=== PATIENT | female | born 1955 | race Caucasian/White ===

== ENCOUNTER → 2016-07-27 | Outpatient (CLI) | payer OTHER ==
[~2016-07-27] MED LIST: BYSTOLIC 5 MG5 M1 PO; CALCIUM + VITA1 EACH; CIPROFLOXACIN500 M1 PO; CYCLOBENZAPRINE5 MG PO; CYMBALTA60 MG PO; EXFORGE 10-1601 EACH; FLAGYL 250 MG250 MG PO; GLUCOSAMINE HC500 MG; INVANZ 1GM/NS 101 GM IV; LIPITOR80 MG PO; LITHIUM CARBON300 M7 PO; MULTIVITAMINS1 EAC7; NORCO 5-325 TA1 EACH PO; PHENERGAN25 MG RE; PRESTIQ; PRILOSEC20 MG PO; PROZAC20 MG PO; WELLBUTRIN XL300 MG; XANAX 0.5 MG0.5 MG PO; ZETIA10 MG PO
== END ==
LOC: RAD 12:46
DX: Z12.31 Encounter for screening mammogram for malignant neoplasm of breast (principal)

== ENCOUNTER 2017-04-15 19:33 | Emergency (ER) | payer OTHER ==
[~2017-04-15] VITALS: Ht 157.5 cm; Wt 63.5 kg
[2017-04-15 21:30] VITALS: BP 124/82
== END 2017-04-15 23:37 | disposition home or self-care (01) ==
LOC: ER 19:33
DX: S12.9XXA Fracture of neck, unspecified, initial encounter (principal); S01.91XA Laceration without foreign body of unspecified part of head, initial encounter; F10.920 Alcohol use, unspecified with intoxication, uncomplicated; K57.92 Diverticulitis of intestine, part unspecified, without perforation or abscess without bleeding; Z98.890 Other specified postprocedural states; W10.9XXA Fall (on) (from) unspecified stairs and steps, initial encounter; Y93.89 Activity, other specified; Y92.89 Other specified places as the place of occurrence of the external cause; Y99.8 Other external cause status; Z88.2 Allergy status to sulfonamides

== ENCOUNTER → 2017-04-23 | Outpatient (CLI) | payer OTHER | LOC: RAD 12:16 | DX: R07.9 Chest pain, unspecified (principal); M51.36 Other intervertebral disc degeneration, lumbar region; R10.2 Pelvic and perineal pain; Z91.81 History of falling ==

== ENCOUNTER → 2017-05-12 | Outpatient (CLI) | payer OTHER | LOC: RAD 11:33 | DX: R07.89 Other chest pain (principal); R06.02 Shortness of breath ==

== ENCOUNTER → 2017-09-30 | Outpatient (CLI) | payer OTHER | LOC: RAD 11:26 | DX: J18.9 Pneumonia, unspecified organism (principal) ==

== ENCOUNTER → 2018-07-27 | Outpatient (CLI) | payer OTHER | LOC: RAD 02:06 | DX: Z12.31 Encounter for screening mammogram for malignant neoplasm of breast (principal) ==

== ENCOUNTER → 2019-05-10 | Outpatient (CLI) | payer OTHER | LOC: ULTRA 05-05 13:52 | DX: M85.89 Other specified disorders of bone density and structure, multiple sites (principal); M81.0 Age-related osteoporosis without current pathological fracture; E28.39 Other primary ovarian failure; Z78.0 Asymptomatic menopausal state ==

== ENCOUNTER → 2019-09-05 | Outpatient (CLI) | payer OTHER | LOC: BC 08:13 | DX: Z12.31 Encounter for screening mammogram for malignant neoplasm of breast (principal) ==

== ENCOUNTER → 2019-09-28 | Outpatient (CLI) | payer OTHER ==
[~2019-09-28] MED LIST changes: +ADDERALL XR 2525 MG PO; +CHILDREN'S ASPI81 M1 PO; +DIOVAN320 MG PO; +EFFEXOR PO; +EFFEXOR XR150 MG PO; +EFFEXOR XR75 MG PO; +FISH OIL 1,0001 EAC9 PO; +NEURONTIN300 MG PO; +NORVASC 2.5 MG2.5 M1 PO; +VITAMIN D310 MC1 PO; +XANAX 0.5 MG0.5 M1 PO
== END ==
LOC: MRI 13:36
PROVIDERS: ATTEND Family Medicine
DX: M47.812 Spondylosis without myelopathy or radiculopathy, cervical region (principal); M48.02 Spinal stenosis, cervical region; M50.221 Other cervical disc displacement at C4-C5 level; M25.78 Osteophyte, vertebrae; M65.88 Other synovitis and tenosynovitis, other site

== ENCOUNTER → 2019-10-06 | Outpatient (CLI) | payer OTHER ==
[~2019-10-06] VITALS: Ht 154.9 cm; Wt 63.1 kg
[2019-10-06 13:40] VITALS: BP 135/72
--- NOTE | 2019-10-06 13:48 | NUR ---
Pain Clinic Assessment: 1. History of Osteoarthritis: NECK LEFT WRIST BACK History of Rheumatoid Arthritis: Not Applicable 2. Height: 5 ft. 1 in. 154.9 cm. Weight: 139.2 lb. oz. 63.141 kg. Patient's BMI: 26.3 3. Vital Signs: BP: 135/72 Pulse: 97 Resp: 18 Temp: 02 Sat: 100 ECG Mon: 4. Pain Intensity: 2 5. Fall Risk: Dizziness: Y Needs help standing or walking: N Fallen in the last 3 months: N Fall risk comments: 6. Patient on Blood Thinner: None 7. History of Hypertension: Y 8. Opioid Therapy greater than 6 weeks: N Opiate Contract Signed: 9. Risk Assessment Tool Provided: LOW RISK /3 10. Functional Assessment Tool: 11. Recreational Drug Use: Never Drug Type: Tobacco Use: Current Every Day Smoker Tobacco Type: Cigarettes Amount or Packs/day: 1-2 CIG DAY How Many Years: 40 Alcohol Use: Yes Frequency: Daily Quant: 3
--- NOTE | 2019-10-18 16:01 | HPC ---
[facility] [address] [address] PAIN MANAGEMENT CONSULTATION Name: CANDE THRASHER Room #: REG SIMRAN Jennings.#: [id number] Admission: 10/06/19 Attend Phys: Patrick Michele MD Discharge: Date of : 51 Report #: [id number] THIS REPORT FOR: cc: Fabian Marrero MD, Neal A. MD Brown,Patrick Prieto MD ~ CC: Patrick Marrero DATE OF SERVICE: 10/06/2019 CHIEF COMPLAINT: Pain, neck and shoulder pain. HISTORY: The patient is a 64-year-old female who has been referred to the pain clinic for evaluation of neck and arm pain. The patient states that her pain is quite problematic. It is as bad as a "labor pain." She has pain that is radiating down into her neck and shoulder. She has noticed an increase in pain at this point. Did have some discomfort about 6 years ago. She notes that the pain is worse when she is extending her neck. It is problematic when she is looking up. Notes that pain medications are somewhat helpful. She describes it as continuous, crushing and aching. Rates it as a 2 today. It can rise to the level of 9. On average, it is about 5/10 and discomfort. Right side is most problematic. She has not had chiropractic treatment. She had physical therapy about 3 years ago. She has tried nonsteroidal anti-inflammatory medications. Pain is particularly problematic in the morning. She has used heat as well as cold to help alleviate the pain. ALLERGIES: SULFA. CURRENT MEDICATIONS: 1. Alprazolam 0.5 mg b.i.d. 2. Effexor 225 mg. 3. Diovan 320 mg. 4. Norvasc 2.5 mg. 5. Vitamin D3. 6. Fish oil 1000 mg. 7. Venlafaxine 75 mg XR, 8. Adderall XR 25 mg. 9. Aspirin 81 mg. 10. Gabapentin 300 mg 2 tablets a.m., one tablet at noon, 1 tablet at bedtime. 11. Multivitamins. 12. Lipitor 80 mg. PAST MEDICAL HISTORY: 1. Anxiety. 2. Arthritis. [facility] [address] [place] [address] PAIN MANAGEMENT CONSULTATION Name: CANDE THRASHER Room #: [facility].#: [id number] Admission: 10/06/19 Attend Phys: Patrick Michele MD Discharge: Date of : 51 Report #: [id number] 3. Asthma. 4. Bronchitis. 5. Depression. 6. Diverticulitis. 7. Hyperlipidemia. 8. Hypertension. 9. Seasonal allergies. 10. Sleep apnea/obstruction on CPAP. PAST SURGICAL HISTORY: 1. Appendectomy in 1973. 2. section, 1978. 3. Right hand surgery after a dog bite in 2015. 4. Hysterectomy in 1993. SOCIAL HISTORY: Retired. States she is working now. REVIEW OF SYSTEMS: Wears glasses, mouth sores, CPAP machine, rash, itching, nervousness, depression. LABORATORY DATA: 1. MRI of the cervical spine dated 09/28/2019. 2. C2-C3 no disk bulge or protrusion. There is no central canal or significant neural foraminal stenosis. There is moderate right-sided hypertrophic degenerative facet disease. 3. C3-C4 right-sided hypertrophic facet arthrosis with fluid signal in the right facet. There is periarticular soft tissue and bone marrow edema consistent with degenerative synovitis. 4. Correlation for right-sided radicular symptoms at C4 radiculopathy. There is no significant disk bulge or protrusion. There is no central canal stenosis. Mild to moderate right-sided neural foraminal narrowing is present, 5. C4-C5 mild posterior disk bulging with effacement of the ventral thecal sac. AP diameter of the central canal is within normal limits. Mild degenerative facet disease are present with symmetry bilateral. 6. C5-C6 disk space and desiccation of the posterior disk bulging causing effacement of the ventral thecal sac. The AP diameter of the central canal is mildly narrowed at 10 mm. There is symmetric bilateral neural foraminal stenosis with mild effacement of both exiting C6 nerve roots. There is mild degenerative facet disease. 7. C6-C7 right paracentral disk osteophyte complex causing effacement of the ventral thecal sac. The AP diameter of the central canal is narrowed to 9.5 mm. There is right lateral recess narrowing. There is mild right-sided neural foraminal stenosis. PAIN CLINIC ASSESSMENT AND PQRS: 1. The patient has some osteoarthritic changes in her neck, left wrist and [address] [address] PAIN MANAGEMENT CONSULTATION Name: CANDE THRASHER KEVON Room #: REG [facility].#: [id number] Admission: 10/06/19 Attend Phys: Patrick Michele MD Discharge: Date of : 51 Report #: [id number] back. She is not being treated for rheumatoid arthritis. 2. Height 5 feet 1 inch, weight 138 pounds, BMI is 26. 3. Vital Signs: Blood pressure 165/69, pulse 95, respiratory rate 18, room air saturation 96%. 4. Pain intensity 06/26. 5. Fall history: The patient has not fallen in the last 3 months. 6. Blood thinner. The patient is not on a blood thinning medication. 7. Hypertension. The patient is being treated for hypertension. 8. Opioids greater than 6 weeks. The patient receives medication from her primary. 9. Risk assessment tool, low for opioid use. 10. Functional assessment tool . 11. Recreational drug use. The patient denies. 12. Tobacco: The patient smokes 2 cigarettes per day, has smoked for last 40 years. 13. Alcohol: The patient does drink 3 beverages daily. PHYSICAL EXAMINATION: GENERAL: The patient is a well-developed, well-nourished white female. Appears her stated age. She is alert and oriented x 3. Her affect is appropriate. Speech is fluent. HEENT: Normocephalic, atraumatic. Extraocular eye muscles intact. Sclerae nonicteric. Mucous membranes are moist. The patient is wearing glasses. NECK: Without adenopathy or JVD. HEART: Rate is regular. CHEST: Clear to auscultation. ABDOMEN: Nontender. EXTREMITIES: Upper extremity muscle strength judged to be 5/5 for the major muscle groups in the upper extremity. The patient has pain and discomfort on the right side. Notes pain and discomfort in the shoulder area with pain that radiates down into the deltoid area and into her arm. Spurling maneuver is positive on the right. MUSCULOSKELETAL: Without significant scoliosis, kyphosis or lordosis. Lower extremity muscle strength judged to be 5/5 for the major muscle groups in the lower extremity. IMPRESSION: 1. Cervical radiculopathy with pain radiating down into the right shoulder and into the arm with increased pain and discomfort. 2. Anxiety. 3. Arthritis. 4. Asthma. 5. Bronchitis. 6. Depression. 7. Diverticulitis. 8. Hyperlipidemia. [facility] [address] [place] [address] PAIN MANAGEMENT CONSULTATION Name: ANNA MARIECANDEJULIO LUND [facility] [id number] Admission: 10/06/19 Attend Phys: Patrick Michele MD Discharge: Date of : 51 Report #: [id number] 9. Hypertension. 10. Seasonal allergies. 11. Sleep apnea/obstruction on CPAP. RECOMMENDATIONS: We discussed treatment options with the patient. Risks and benefits of a cervical epidural steroid injection were discussed. A model was used to indicate the area of probable pathology. We will explain a very basic level of the problems associated with cervical radiculopathy. The patient states that she understands. She will return to the Pain Clinic, at which time she will undergo a cervical epidural steroid injection. Risks and benefits were discussed. The patient will be reminded at the next visit. The possible complications prior to undergoing an injection. We would like to thank you for letting us participate in her care. We hope she continues to improve. <ELECTRONICALLY SIGNED> By: Patrick Michele MD 10/18/19 1601 [id number] Patrick Michele MD /CALVIN
== END ==
LOC: PAIN 06:50
PROVIDERS: ATTEND Anesthesiology Pain Medicine
DX: M54.12 Radiculopathy, cervical region (principal); M25.511 Pain in right shoulder; M19.90 Unspecified osteoarthritis, unspecified site; F41.8 Other specified anxiety disorders; K57.33 Diverticulitis of large intestine without perforation or abscess with bleeding; E78.5 Hyperlipidemia, unspecified; J40 Bronchitis, not specified as acute or chronic; F17.210 Nicotine dependence, cigarettes, uncomplicated; F10.10 Alcohol abuse, uncomplicated; I10 Essential (primary) hypertension; G47.33 Obstructive sleep apnea (adult) (pediatric); Z98.890 Other specified postprocedural states; Z88.2 Allergy status to sulfonamides; Z79.899 Other long term (current) drug therapy

== ENCOUNTER → 2019-10-11 | Outpatient (CLI) | payer OTHER ==
[~2019-10-11] VITALS: Ht 154.9 cm; Wt 62.9 kg
--- NOTE | ~2019-10-11 | HPC ---
[facility] [place] [address] PAIN MANAGEMENT CONSULTATION Name: CANDE THRASHER Room #: REG [facility] Dick.#: [id number] Admission: 10/11/19 Attend Phys: Patrick Michele MD Discharge: Date of : 51 Report #: [id number] THIS REPORT FOR: cc: Fabian Marrero MD,Fabian Michele,Patrick Prieto MD ~ CC: Patrick Marrero DATE OF SERVICE: 10/11/2019 CHIEF COMPLAINT: Neck pain and shoulder pain. HISTORY: The patient is a 64-year-old female who has been seen in the pain clinic because of neck and arm pain. The patient has been problematic. She states she has a very severe pain. It is better if she was in labor. Notes that the pain radiates down into her neck and her shoulder. Has noticed increasing pain at this juncture. She did have some discomfort about 6 years ago. Pain continues to worsen, particularly when she extends her neck. She has returned today with the hopes of undergoing a cervical epidural steroid injection to help quell the pain. ALLERGIES: SULFA. CURRENT MEDICATIONS: Alprazolam 0.5 mg b.i.d., Effexor 225 mg, Diovan 320 mg, Norvasc 2.5 mg, vitamin D3, fish oil 1000 mg, venlafaxine 75 mg XR, Adderall XR 25 mg, aspirin 81 mg, gabapentin 300 mg 2 tablets a.m., 1 tablet at noon, and 1 tablet at bedtime, multivitamins, Lipitor 80 mg. PAIN CLINIC ASSESSMENT AND PQRS: 1. The patient has some osteoarthritic changes in her neck. Complains of some left wrist and back pain as well. She is not being treated for rheumatoid arthritis. 2. Height 5 feet 1 inch, weight 138 pounds, BMI is 26. 3. Vital Signs: Blood pressure 165/69, pulse 95, respiratory rate 18, room air saturation 96%. 4. Pain intensity 06/26. 5. Fall risk. The patient has not fallen in the last 3 months. 6. Blood thinner. The patient is not on a blood thinning medication. 7. Hypertension. The patient is being treated for hypertension. 8. Opioids greater than 6 weeks. The patient receives medication from her primary. 9. Risk assessment tool, low for opioid use. 10. Functional assessment tool . 11. Recreational drug use. The patient denies. 12. Tobacco: The patient smokes 1-2 cigarettes per day, has smoked for [address] [place] [address] PAIN MANAGEMENT CONSULTATION Name: CANDE THRASHER Room #: REG [facility]#: [id number] Admission: 10/11/19 Attend Phys: Patrick Michele MD Discharge: Date of : 51 Report #: [id number] years. 13. Alcohol: The patient drinks about 3 alcoholic beverages daily. PHYSICAL EXAMINATION: GENERAL: The patient is a well-developed, well-nourished white female. Appears her stated age. She is alert and oriented x 3. Her affect is appropriate. Speech is fluent. HEENT: Normocephalic, atraumatic. Extraocular eye muscles intact. Sclerae nonicteric. Mucous membranes are moist. The patient is wearing glasses. NECK: Without adenopathy or JVD. HEART: Regular rate. CHEST: Clear to auscultation. ABDOMEN: Nontender. EXTREMITIES: Upper extremity judged to be 5-/5 for the major muscle groups in the upper extremity. The patient has some pain and discomfort in her right shoulder and arm. Increases pain with Spurling maneuver positive on the right. MUSCULOSKELETAL: Without significant scoliosis, kyphosis or lordosis. Muscle strength 5/5 for the major muscle groups in the lower extremity. IMPRESSION: 1. Cervical radiculopathy with pain radiating down the right shoulder and into the right arm with increasing pain and discomfort. 2. Anxiety. 3. Arthritis. 4. Asthma. 5. Bronchitis. 6. Depression. 7. Diverticulitis. 8. Hyperlipidemia. 9. Hypertension. 10. Seasonal allergies. 11. Sleep apnea/obstruction using CPAP. RECOMMENDATIONS: We discussed treatment options with the patient. Risks and benefits of a cervical epidural steroid injection were discussed. They could include but are not limited to infection, worsening the pain, no improvement in pain, nerve damage and the patient elects to proceed. PROCEDURE NOTE: The patient was taken to the procedure area. She was then assisted in getting on the examination table. Her back was sterilely prepped with a Betadine solution in the cervical area. A 0.25% bupivacaine was infiltrated using a 25-gauge needle. Fluoroscopy using anterior, posterior as well as lateral viewing were used to note placement. A 17-gauge Tuohy with loss of resistance technique was used to gain access to the epidural space. There was no CSF, heme or paresthesia. A total of 120 mg triamcinolone was injected. The patient tolerated the procedure well. There were no complications. About [address] [address] PAIN MANAGEMENT CONSULTATION Name: CANDE THRASHER Room #: REG [facility] Cheng#: [id number] Admission: 10/11/19 Attend Phys: Patrick Michele MD Discharge: Date of : 51 Report #: [id number] 20 seconds fluoroscopy time was used. The patient remained in the pain clinic for an appropriate amount of time. She will follow up in the future as needed. We would like to thank you for letting us participate in her care. We hope she continues to improve. By: [id number] Patrick Michele MD /CALVIN
[2019-10-11 13:01] VITALS: BP 165/69
--- NOTE | 2019-10-11 13:17 | NUR ---
Pain Clinic Assessment: 1. History of Osteoarthritis: NECK LEFT WRIST BACK History of Rheumatoid Arthritis: Not Applicable 2. Height: 5 ft. 1 in. 154.9 cm. Weight: 138.6 lb. oz. 62.868 kg. Patient's BMI: 26.2 3. Vital Signs: BP: 165/69 Pulse: 95 Resp: 18 Temp: 02 Sat: 96 ECG Mon: 4. Pain Intensity: 3 5. Fall Risk: Dizziness: Y Needs help standing or walking: N Fallen in the last 3 months: N Fall risk comments: 6. Patient on Blood Thinner: None 7. History of Hypertension: Y 8. Opioid Therapy greater than 6 weeks: N Opiate Contract Signed: 9. Risk Assessment Tool Provided: LOW RISK /3 10. Functional Assessment Tool: 11. Recreational Drug Use: Never Drug Type: Tobacco Use: Current Every Day Smoker Tobacco Type: Cigarettes Amount or Packs/day: 1-2 CIGS How Many Years: 40 Alcohol Use: Yes Frequency: Daily Quant: 3
== END | disposition home or self-care (01) ==
LOC: PAIN 06:47
PROVIDERS: ATTEND Anesthesiology Pain Medicine
DX: M54.12 Radiculopathy, cervical region (principal); G89.29 Other chronic pain; F17.210 Nicotine dependence, cigarettes, uncomplicated; Z98.890 Other specified postprocedural states; Z79.899 Other long term (current) drug therapy; Z88.2 Allergy status to sulfonamides

== ENCOUNTER → 2019-12-06 | Outpatient (CLI) | payer OTHER ==
[~2019-12-06] VITALS: Ht 154.9 cm; Wt 63.1 kg
[~2019-12-06] MED LIST changes: +GINKGO BILOBA30 MG PO; +MAGNESIUM 300300 MG PO
--- NOTE | ~2019-12-06 | HPC ---
[facility] [place] [address] PAIN MANAGEMENT CONSULTATION Name: CANDE THRASHER Room #: REG [facility].#: [id number] Admission: 12/06/19 Attend Phys: Patrick Michele MD Discharge: Date of : 51 Report #: [id number] THIS REPORT FOR: cc: Fabian Marrero MD,Fabian Michele,Patrick Prieto MD ~ CC: Patrick Marrero DATE OF SERVICE: 12/06/2019 CHIEF COMPLAINT: Pain in the left side and down in the arm. HISTORY: The patient is a 64-year-old female who has been seen in the pain clinic. She suffers from cervical radiculopathy. She is noticing pain that continues to be somewhat problematic. She is experiencing pain that radiates down the left and right side. Pain is worse in the morning when she gets out of bed. She notes that if she uses her hand this can increase the pain and discomfort. Certain movements of her head can increase the discomfort as well. She does try to exercise and "work out." At this point, her pain continues to be problematic and she rates it as a 2 now, but more problematic in the morning. She would like to proceed with another cervical epidural steroid injection with hopes that this would help increase her level of comfort. ALLERGIES: SULFA. CURRENT MEDICATIONS: Alprazolam 0.5 mg b.i.d., Effexor 225 mg, Diovan 320 mg, Norvasc 2.5 mg, vitamin D3, fish oil 1000 mg, venlafaxine 75 mg XR, Adderall XR 25 mg, aspirin 81 mg, gabapentin 300 mg 2 tablets a.m., one noon, 1 at bedtime, multivitamins, Lipitor 80 mg. PAIN CLINIC ASSESSMENT/PQRS: 1. The patient has some osteoarthritic changes in her neck. Complains of pain that radiates down to her left wrist as well as some pain in the mid portion of her back. She is not being treated for rheumatoid arthritis. 2. Height 5 feet 1 inch, weight 139 pounds, BMI 26. 3. Vital Signs: Blood pressure 137/64, heart rate 108, respiratory rate 18, room air saturation 98%. 4. The patient has pain 05/29. 5. Fall history: The patient has not fallen in the last 3 months. 6. Blood thinner: the patient is not on a blood thinning medication. 7. Hypertension: The patient is being treated for hypertension. 8. Opioids greater than 6 weeks: The patient receives medication from the primary. 9. Risk assessment tool: Low for opioid use. 10. Functional assessment tool: . [address] [address] PAIN MANAGEMENT CONSULTATION Name: THRASHERCANDE [facility] [id number] Admission: 12/06/19 Attend Phys: Patrick Michele MD Discharge: Date of : 51 Report #: [id number] 11. Recreational drug use: The patient denies. 12. Tobacco: The patient smokes 1-2 cigarettes per day, has smoked for last 40 years. 13. Alcohol: The patient drinks about 3 alcoholic beverages daily. PHYSICAL EXAMINATION: GENERAL: The patient is a well-developed, well-nourished white female. Appears her stated age. She is alert and oriented x 3. Her affect is appropriate. Speech is fluent. HEENT: Normocephalic, atraumatic. Extraocular eye muscles intact. Sclerae nonicteric. Mucous membranes are moist. The patient is wearing glasses. She has a face cover on. NECK: Without adenopathy or JVD. HEART: Regular rate. LUNGS: Clear to auscultation. ABDOMEN: Nontender. EXTREMITIES: Upper extremity muscle strength judged to be 5-/5 for the major muscle groups in the upper extremity. The patient complains of some pain and discomfort on the right shoulder and arm. Complains of some pain and discomfort in the left arm with radiation down to her hands. The patient has a positive Spurling maneuver. The patient without significant scoliosis, kyphosis or lordosis. Lower extremity muscle strength judged to be 5/5 for the major muscle groups in the lower extremity. IMPRESSION: 1. Cervical radiculopathy with pain radiating down to the right shoulder and into the left side with pain into the right arm. 2. Anxiety. 3. Arthritis. 4. Asthma. 5. Bronchitis. 6. Depression. 7. Diverticulitis. 8. Hyperlipidemia. 9. Hypertension. 10. Seasonal allergies. 11. Sleep apnea/patient uses a CPAP machine. RECOMMENDATIONS: We discussed treatment options with the patient. Risks and benefits of a cervical epidural steroid injection were again discussed. They include but they are not limited to infection, worsening of pain, no improvement in pain, nerve damage and the patient elects to proceed. The patient is aware that COVID-19 is pandemic. Should she become infected during the procedure she may have a more difficult problem with the virus given the steroids decrease one's immune response. [facility] [address] [place] [address] PAIN MANAGEMENT CONSULTATION Name: CANDE THRASHER Room #: HOANG Cheng#: [id number] Admission: 12/06/19 Attend Phys: Patrick Michele MD Discharge: Date of : 51 Report #: [id number] PROCEDURE NOTE: The patient was taken to the procedure area. She was then assisted in getting on the examination table. Her back was sterilely prepped with a Betadine solution and allowed to dry. A 0.25% bupivacaine was infiltrated at the C7-T1 interspace. A fluoroscopy using anterior, posterior as well as lateral viewing were implemented. A 17-gauge Tuohy was then advanced at the area of C7-T1. A total of 120 mg triamcinolone and 2 mL of 0.25% bupivacaine was injected. The patient tolerated the procedure well. There were no complications. She remained in the Pain Clinic for an appropriate amount of time. A total of 29 seconds fluoroscopy time was used. She will call us if she has any concerns. By: [id number] Patrick Michele MD /CALVIN
[2019-12-06 12:36] VITALS: BP 132/64
--- NOTE | 2019-12-06 12:41 | NUR ---
Pain Clinic Assessment: 1. History of Osteoarthritis: NECK LEFT WRIST BACK History of Rheumatoid Arthritis: Not Applicable 2. Height: 5 ft. 1 in. 154.9 cm. Weight: 139.2 lb. oz. 63.141 kg. Patient's BMI: 26.3 3. Vital Signs: BP: 132/64 Pulse: 108 Resp: 18 Temp: 02 Sat: 98 ECG Mon: 4. Pain Intensity: 2 5. Fall Risk: Dizziness: Needs help standing or walking: Fallen in the last 3 months: Fall risk comments: 6. Patient on Blood Thinner: None 7. History of Hypertension: Y 8. Opioid Therapy greater than 6 weeks: N Opiate Contract Signed: 9. Risk Assessment Tool Provided: LOW RISK / 10. Functional Assessment Tool: 11. Recreational Drug Use: Never Drug Type: Tobacco Use: Current Every Day Smoker Tobacco Type: Amount or Packs/day: How Many Years: Alcohol Use: Yes Frequency: Quant:
== END | disposition home or self-care (01) ==
LOC: PAIN 12-01 06:53
PROVIDERS: ATTEND Anesthesiology Pain Medicine
DX: M54.12 Radiculopathy, cervical region (principal); G89.29 Other chronic pain; I10 Essential (primary) hypertension; M19.90 Unspecified osteoarthritis, unspecified site; F41.9 Anxiety disorder, unspecified; F32.9 Major depressive disorder, single episode, unspecified; E78.5 Hyperlipidemia, unspecified; G47.30 Sleep apnea, unspecified; J45.909 Unspecified asthma, uncomplicated; Z98.890 Other specified postprocedural states; Z79.899 Other long term (current) drug therapy; Z88.2 Allergy status to sulfonamides

== ENCOUNTER → 2020-03-13 | Outpatient (CLI) | payer OTHER ==
[~2020-03-13] VITALS: Ht 152.4 cm; Wt 65.3 kg
[~2020-03-13] MED LIST changes: +TRAMADOL 50 MG50 MG PO; +TRAMADOL100 MG PO
[2020-03-13 12:38] VITALS: BP 140/76
--- NOTE | 2020-03-13 12:45 | NUR ---
Pain Clinic Assessment: 1. History of Osteoarthritis: NECK LEFT WRIST BACK History of Rheumatoid Arthritis: Not Applicable 2. Height: 5 ft. 0 in. 152.4 cm. Weight: 144.0 lb. oz. 65.318 kg. Patient's BMI: 28.1 3. Vital Signs: BP: 140/76 Pulse: 93 Resp: 16 Temp: 02 Sat: 98 ECG Mon: 4. Pain Intensity: 5 5. Fall Risk: Dizziness: N Needs help standing or walking: N Fallen in the last 3 months: N Fall risk comments: 6. Patient on Blood Thinner: None 7. History of Hypertension: Y 8. Opioid Therapy greater than 6 weeks: N Opiate Contract Signed: 9. Risk Assessment Tool Provided: LOW RISK 2 10. Functional Assessment Tool: 11. Recreational Drug Use: Never Drug Type: Tobacco Use: Current Every Day Smoker Tobacco Type: Cigarettes Amount or Packs/day: 2 CIGS How Many Years: 40 Alcohol Use: Yes Frequency: Daily Quant: 3-4 VODKA SODA WITH LEMON
== END ==
LOC: PAIN 06:46
PROVIDERS: ATTEND Anesthesiology Pain Medicine
DX: M54.12 Radiculopathy, cervical region (principal); M19.90 Unspecified osteoarthritis, unspecified site; J45.909 Unspecified asthma, uncomplicated; F32.9 Major depressive disorder, single episode, unspecified; K57.92 Diverticulitis of intestine, part unspecified, without perforation or abscess without bleeding; F41.9 Anxiety disorder, unspecified; I10 Essential (primary) hypertension; E78.5 Hyperlipidemia, unspecified; G47.30 Sleep apnea, unspecified; F17.210 Nicotine dependence, cigarettes, uncomplicated

== ENCOUNTER → 2020-03-27 | Outpatient (CLI) | payer OTHER ==
[~2020-03-27] VITALS: Ht 152.4 cm; Wt 65.9 kg
[2020-03-27 14:00] VITALS: BP 135/61
== END ==
LOC: PAIN 06:55
PROVIDERS: ATTEND Anesthesiology Pain Medicine
DX: M54.2 Cervicalgia (principal); M25.511 Pain in right shoulder; Z88.8 Allergy status to other drugs, medicaments and biological substances

== ENCOUNTER → 2020-05-24 | Outpatient (CLI) | payer OTHER ==
[~2020-05-24] VITALS: Ht 152.4 cm; Wt 66.4 kg
[~2020-05-24] MED LIST changes: +ADDERALL 20 MG20 MG PO; +INCRUSE ELLI62.5 MCG INH
[2020-05-24 14:31] VITALS: BP 136/72
--- NOTE | 2020-05-24 14:44 | NUR ---
Pain Clinic Assessment: 1. History of Osteoarthritis: NECK LEFT WRIST BACK History of Rheumatoid Arthritis: Not Applicable 2. Height: 5 ft. 0 in. 152.4 cm. Weight: 146.4 lb. oz. 66.407 kg. Patient's BMI: 28.6 3. Vital Signs: BP: 136/72 Pulse: 95 Resp: 14 Temp: 02 Sat: 97 ECG Mon: 4. Pain Intensity: 6 5. Fall Risk: Dizziness: N Needs help standing or walking: N Fallen in the last 3 months: N Fall risk comments: 6. Patient on Blood Thinner: None 7. History of Hypertension: Y 8. Opioid Therapy greater than 6 weeks: N Opiate Contract Signed: 9. Risk Assessment Tool Provided: LOW RISK 2 10. Functional Assessment Tool: 11. Recreational Drug Use: Never Drug Type: Tobacco Use: Current Every Day Smoker Tobacco Type: Cigarettes Amount or Packs/day: 1 CIGG How Many Years: 45 Alcohol Use: Yes Frequency: Daily Quant: 3
== END | disposition home or self-care (01) ==
LOC: PAIN 07:04
PROVIDERS: ATTEND Anesthesiology Pain Medicine
DX: M54.12 Radiculopathy, cervical region (principal); G89.29 Other chronic pain; I10 Essential (primary) hypertension; E78.5 Hyperlipidemia, unspecified; M19.90 Unspecified osteoarthritis, unspecified site; J45.909 Unspecified asthma, uncomplicated; F32.9 Major depressive disorder, single episode, unspecified; G47.30 Sleep apnea, unspecified; F41.9 Anxiety disorder, unspecified; Z98.890 Other specified postprocedural states; Z79.899 Other long term (current) drug therapy; Z88.2 Allergy status to sulfonamides

== ENCOUNTER → 2020-07-03 | Outpatient (CLI) | payer OTHER ==
[~2020-07-03] VITALS: Ht 152.4 cm; Wt 64.5 kg
[~2020-07-03] MED LIST changes: +K-DUR10 MEQ PO
[2020-07-03 09:18] VITALS: BP 130/75
--- NOTE | 2020-07-03 09:24 | NUR ---
Pain Clinic Assessment: 1. History of Osteoarthritis: NECK LEFT WRIST BACK History of Rheumatoid Arthritis: Not Applicable 2. Height: 5 ft. 0 in. 152.4 cm. Weight: 142.2 lb. oz. 64.501 kg. Patient's BMI: 27.8 3. Vital Signs: BP: 130/75 Pulse: 99 Resp: 16 Temp: 02 Sat: 95 ECG Mon: 4. Pain Intensity: 8 5. Fall Risk: Dizziness: Y Needs help standing or walking: N Fallen in the last 3 months: N Fall risk comments: 6. Patient on Blood Thinner: None 7. History of Hypertension: Y 8. Opioid Therapy greater than 6 weeks: N Opiate Contract Signed: 9. Risk Assessment Tool Provided: LOW RISK 2 10. Functional Assessment Tool: 11. Recreational Drug Use: Never Drug Type: Tobacco Use: Current Every Day Smoker Tobacco Type: Cigarettes Amount or Packs/day: 1-2 CIGS How Many Years: Alcohol Use: Yes Frequency: Quant:
--- NOTE | 2020-07-03 14:50 | HPC ---
[facility] [address] [address] PAIN MANAGEMENT CONSULTATION Name: CANDE THRASHER Room #: REG [facility] MLeann.#: [id number] Admission: 07/03/20 Attend Phys: Augusta Meehan Discharge: Date of : 51 Report #: [id number] THIS REPORT FOR: cc: Fabian Marrero MD, Neal A. MD Hocker,Augusta Barron DATE OF SERVICE: 07/03/2020 CHIEF COMPLAINT: Cervical radiculopathy and left wrist pain. HISTORY OF PRESENT ILLNESS: This is a 65-year-old female who is in a pain clinic today for renewal of medications. Today, she is presenting very anxious, complaining of chest discomfort. She denies any chest pain. She states that she has indigestion. She has bouts of this several times a year and has brought to the Emergency Room and has never been cardiac related per her report. She is asking for hard candy and is so anxious. She is unable to concentrate on our appointment, so she left to go to the pharmacy and obtained Tums. When she returned in our clinic, she is much more calm and states that her chest discomfort disappeared. The patient is here for medication refills for her cervical radiculopathy. Per her report, the last injection that Dr. Michele performed in May was helpful 50-75% and is still relieving significant portion of her pain. Today, her pain is elevated at 8/10, but that was mostly related to her chest discomfort since that has resolved. She now rates her pain 4. It is mostly located in her neck and right shoulder and most bothersome in her left wrist today with certain movements. She denies any constipation, problems with her tramadol and believes it is very beneficial for her. ALLERGIES: SULFA. CURRENT LIST OF MEDICATIONS: Potassium, tramadol 100 mg b.i.d., Incruse Ellipta, Adderall, Ginkgo biloba, magnesium, alprazolam, Effexor, losartan, amlodipine, vitamin D3, fish oil, venlafaxine, aspirin, gabapentin, multivitamin, atorvastatin. PQRS: 1. She has osteoarthritic changes in her neck, wrist and back. Denies any rheumatoid arthritis. 2. Height is 5 feet, weight is 142, BMI is 27. Vital signs 130/75, pulse is 99, respirations 16, oxygen sat is 95. 3. Pain score is 48. 4. Complains of slight dizziness, does not use anything for ambulation and has not fallen in the last 3 months. 5. The patient is not on any blood thinners, but does take medicine for hypertension. Opioid therapy is greater than 6 weeks. We will have her sign an [facility] [address] [place] [address] PAIN MANAGEMENT CONSULTATION Name: CANDE THRASHER KEVON Room #: REG CL Prosper#: [id number] Admission: 07/03/20 Attend Phys: Augusta Meehan Discharge: Date of : 51 Report #: [id number] opioid contract at her next visit. 6. Recreational drug use, she denies. She is a current smoker of 1-2 cigarettes a day. She does drink alcohol. Her risk assessment is low. Functional assessment is 33/70. According to the prescription monitoring system, she is filling appropriately for medications. She does take a benzodiazepine as well as her Adderall and is followed closely by other physicians. She is on time to fill her tramadol today. Her morphine mEq is [address] below the CDC guidelines, she is followed monthly currently in our clinic. PHYSICAL EXAMINATION: GENERAL: This is a well-developed, well-nourished white female who is very anxious today. She is alert and orientated, answering all my questions appropriately, rating her pain score from 4-8. HEENT: Normocephalic, atraumatic. Extraocular eye muscles are intact. Sclerae are nonintrinsic. She is wearing a mask. NECK: Without adenopathy or JVD. She has discomfort in her cervical spine that radiates into her right shoulder following the C7 dermatomal distribution. MUSCULOSKELETAL: The patient is without significant scoliosis, kyphosis or lordosis. Muscle strength in her upper extremity is symmetrical at 5/5. She has tenderness in her left wrist with flexion and extension. No radicular symptoms in her hands present today. IMPRESSION: 1. Cervical radiculopathy. 2. Anxiety. 3. Arthritis. 4. Depression. 5. Hypertension. 6. Complex medical management utilizing scheduled opioid medications. 7. Gastrointestional Reflux PLAN: 1. We discussed treatment options with the patient today. The patient feels the tramadol has been beneficial in helping reduce her pain as well as her third cervical epidural steroid injection afforded her 50-75% relief, she would like to continue on her current regimen. I explained that she will be seen monthly in the clinic until she has been on opioids for [address] Michele's protocol. Then we will be able to follow her every 3 months. Per the CDC's recommendations, she is at 50 MME or below. The patient is agreeable with this plan of care. We will have Dr. Andres Michele send a tramadol prescription for #120 tablets to her pharmacy today. 2. I encouraged the patient to keep Tums with her at all times or some antiacid medications to prevent issues she had when she arrived in our clinic. Time spent in consultation reviewing pertinent imaging and reviewing clinical [facility] [address] [place] [address] PAIN MANAGEMENT CONSULTATION Name: CANDE THRASHER Room #: REG [facility] Dick.#: [id number] Admission: 07/03/20 Attend Phys: Augusta Meehan Discharge: Date of : 51 Report #: [id number] notes and physician reports conducting physical examination and correlating physical findings of medical documentation determine a treatment, 15 minutes. Time spent in preparation for appointment routine prescription monitoring report, reviewing revious records and proposed treatment options, reviewing current medication every 5 minutes. Time spent preparing sending electronic prescriptions with collaborated physician, Dr. Michele documentation of visit and plan of treatment. 5 minutes. Total time spent 25 minutes. <ELECTRONICALLY SIGNED> By: Augusta Meehan 07/03/20 1450 [id number] [id number] Augusta Meehan /nt
== END ==
LOC: PAIN 06:39
PROVIDERS: ATTEND Clinical Nurse Specialist Adult Health
DX: M54.12 Radiculopathy, cervical region (principal); M19.90 Unspecified osteoarthritis, unspecified site; I10 Essential (primary) hypertension; K21.9 Gastro-esophageal reflux disease without esophagitis; F32.9 Major depressive disorder, single episode, unspecified; F41.9 Anxiety disorder, unspecified; Z79.899 Other long term (current) drug therapy; Z79.891 Long term (current) use of opiate analgesic; Z88.2 Allergy status to sulfonamides

== ENCOUNTER → 2020-07-31 | Outpatient (CLI) | payer OTHER ==
[~2020-07-31] VITALS: Ht 152.4 cm; Wt 63.0 kg
[2020-07-31 09:03] VITALS: BP 143/60
--- NOTE | 2020-07-31 09:12 | NUR ---
Pain Clinic Assessment: 1. History of Osteoarthritis: NECK LEFT WRIST BACK History of Rheumatoid Arthritis: Not Applicable 2. Height: 5 ft. 0 in. 152.4 cm. Weight: 139.0 lb. oz. 63.050 kg. Patient's BMI: 27.1 3. Vital Signs: BP: 143/60 Pulse: 91 Resp: 14 Temp: 02 Sat: 97 ECG Mon: 4. Pain Intensity: 0 5. Fall Risk: Dizziness: N Needs help standing or walking: N Fallen in the last 3 months: N Fall risk comments: 6. Patient on Blood Thinner: None 7. History of Hypertension: Y 8. Opioid Therapy greater than 6 weeks: N Opiate Contract Signed: 9. Risk Assessment Tool Provided: LOW RISK 2 10. Functional Assessment Tool: 11. Recreational Drug Use: Never Drug Type: Tobacco Use: Current Every Day Smoker Tobacco Type: Cigarettes Amount or Packs/day: 0.1 How Many Years: 40 Alcohol Use: Yes Frequency: Daily Quant: 3-4 VODKA
--- NOTE | 2020-08-01 09:43 | HPC ---
[facility] [address] [place] [address] PAIN MANAGEMENT CONSULTATION Name: CANDE THRASHER [facility] [id number] Admission: 07/31/20 Attend Phys: Augusta Meehan Discharge: Date of : 51 Report #: [id number] THIS REPORT FOR: cc: Fabian Marrero MD, Neal A. MD Hocker,Augusta Barron DATE OF SERVICE: 07/31/2020 CHIEF COMPLAINT: Cervical radiculopathy. HISTORY OF PRESENT ILLNESS: This is a pleasant 65-year-old female who returns to the pain clinic today for renewal of her tramadol. Today, the patient is reporting no pain. She believes the tramadol is very beneficial in helping control her neck and right shoulder pain. She describes it as a constant aching sensation, especially when she turns her head. She reports going to [employer] 3 times a week and feels that it is also beneficial in keeping her pain reduced. She reports noticing a difference in her discomfort if she forgets to take her tramadol. The patient denies any opioid-induced constipation or any daytime somnolence as a result of her medications. Today, she would like refills of that medication. The patient reports having both of her COVID vaccines. She has not had any side effects after the injections. ALLERGIES: SULFA. CURRENT LIST OF MEDICATIONS: Tramadol 50 mg 4 times a day, potassium, Incruse Ellipta, Adderall, ginkgo biloba, magnesium, alprazolam, Effexor, valsartan, Norvasc, vitamin D, fish oil, aspirin, gabapentin, multivitamin, and atorvastatin. PQRS: 1. She has arthritic changes in her neck, wrist, and back. Denies any rheumatoid arthritis. 2. Height is 5 feet, weight is 139, BMI is 21. 3. Vital signs 143/60, pulse is 91, respirations 14, oxygen sat is 97%. 4. Pain score is 0. 5. Denies dizziness, has not fallen in the last 3 months and does not need assistance with ambulation. 6. The patient is not on blood thinners. She does take medicine for hypertension. 7. Opioid therapy is greater than [address] an opioid agreement in her chart for her to sign at her next visit. Risk assessment is low. Functional assessment is 33/70. 8. Recreational drug use, she denies. She is a current smoker and drinks alcohol. We encouraged her to drink in moderation due to her opioid [address] [address] PAIN MANAGEMENT CONSULTATION Name: CANDE THRASHER Room #: REG [facility] Prosper#: [id number] Admission: 07/31/20 Attend Phys: Augusta Meehan Discharge: Date of : 51 Report #: [id number] medications. According to the prescription monitoring system, the patient is filling appropriately. She is due to fill this medication this weekend. Her morphine mEq is 20 MME per day according to the CDC guidelines. We will collect a random drug screen on her in the near future. PHYSICAL EXAMINATION: GENERAL: This is alert and orientated, slightly anxious, well-developed, well-nourished 65-year-old female who appears her stated age, rating her pain score at 0/10 today. HEENT: Normocephalic, atraumatic. Extraocular eye muscles are intact. She is wearing a mask. NECK: Without adenopathy or JVD. She has tenderness in her cervical spine that radiates into her shoulder and the upper aspect of her arm following the C6-C7 dermatomal distribution. MUSCULOSKELETAL: She is without significant scoliosis, kyphosis or lordosis. She is able to walk without any difficulty and her lower extremity strength is symmetrical. IMPRESSION: 1. Cervical radiculopathy. 2. Anxiety. 3. Osteoarthritis. 4. Depression. 5. Hypertension. 6. Complex medical management utilizing scheduled opioid medications. PLAN: 1. We discussed treatment options with the patient today. The patient finds her tramadol very effective in controlling her pain and does notice a difference when she does not take her opioid medications. We will continue her on the tramadol 50 mg 4 times a day. This will be sent electronically by Dr. Andres Michele. The patient is seen on a monthly basis and will continue on a monthly basis until January. At that time, we will hopefully see her then every 3 months. 2. We will have the patient sign an opioid agreement at her next visit and then follow up with a urine drug screen the visit after that. The patient has had her COVID vaccine with no problems with side effects. Time spent with the patient in consultation, reviewing recent studies and clinical notes and physician reports, physical examination and correlation of findings and medical documentation to determine treatment options is 10 minutes. Time spent in preparation for appointment reviewing prescription monitoring system, reviewing previous records and proposed treatment options, and reviewing [facility] [address] [place] [address] PAIN MANAGEMENT CONSULTATION Name: CANDE THRASHER [id number] Admission: 07/31/20 Attend Phys: Augusta Meehan Discharge: Date of : 51 Report #: [id number] current medications is 5 minutes. Time spent preparing and sending electronic prescriptions with collaborating physician, Dr. Andres Michele and documentation of visit and plan of treatment is 5 minutes. Total time spent with the patient is 20 minutes. <ELECTRONICALLY SIGNED> By: Augusta Meehan 08/01/20 0943 [id number] 1557 Augusta Meehan /negin
== END ==
LOC: PAIN 08:55
PROVIDERS: ATTEND Clinical Nurse Specialist Adult Health
DX: M54.12 Radiculopathy, cervical region (principal); F41.9 Anxiety disorder, unspecified; M19.90 Unspecified osteoarthritis, unspecified site; F41.8 Other specified anxiety disorders; I10 Essential (primary) hypertension; M81.0 Age-related osteoporosis without current pathological fracture; F11.20 Opioid dependence, uncomplicated

== ENCOUNTER → 2020-08-28 | Outpatient (CLI) | payer OTHER ==
[~2020-08-28] VITALS: Ht 152.4 cm; Wt 61.5 kg
[2020-08-28 08:56] VITALS: BP 121/64
--- NOTE | 2020-08-28 09:07 | NUR ---
Pain Clinic Assessment: 1. History of Osteoarthritis: NECK LEFT WRIST BACK History of Rheumatoid Arthritis: Not Applicable 2. Height: 5 ft. 0 in. 152.4 cm. Weight: 135.6 lb. oz. 61.508 kg. Patient's BMI: 26.5 3. Vital Signs: BP: 121/64 Pulse: 98 Resp: 14 Temp: 02 Sat: 99 ECG Mon: 4. Pain Intensity: 0 5. Fall Risk: Dizziness: N Needs help standing or walking: N Fallen in the last 3 months: N Fall risk comments: 6. Patient on Blood Thinner: None 7. History of Hypertension: Y 8. Opioid Therapy greater than 6 weeks: N Opiate Contract Signed: 9. Risk Assessment Tool Provided: LOW RISK 2 10. Functional Assessment Tool: 11. Recreational Drug Use: Never Drug Type: Tobacco Use: Current Every Day Smoker Tobacco Type: Cigarettes Amount or Packs/day: 1 cig/day How Many Years: 40 Alcohol Use: Yes Frequency: Daily Quant: 3
--- NOTE | 2020-08-29 15:16 | HPC ---
[facility] [address] [place] [address] PAIN MANAGEMENT CONSULTATION Name: CANDE THRASHER Room #: REG [facility]..#: [id number] Admission: 08/28/20 Attend Phys: Augusta Meehan Discharge: Date of : 51 Report #: [id number] THIS REPORT FOR: cc: Fabian Marrero MD,Augusta Kumar MD ~ DOC #: [id number] cc: Fabian Marrero MD, MD Augusta Gordillo, INSTRUMENTATION SPECIALIST DATE OF SERVICE: 08/28/2020 CHIEF COMPLAINT: Cervical radiculopathy. HISTORY OF PRESENT ILLNESS: This is a very pleasant 65-year-old female who returns to the pain clinic today for renewal of her opioid medications. Today, she is describing her pain as aching sensation in her cervical region that is worse with turning her head or moving her arms. She believes the tramadol is very beneficial in decreasing her pain rating at a 0 today. She is able to do activities that she enjoys such as curves 3 times a week and she believes that the tramadol enables her to be this active. Today, the patient is complaining of some nausea that she has been experiencing for greater than a week. At a previous visit, she was having significant reflux. I have encouraged her several times to see her primary care doctor. Today, she says she is going to call for an appointment. She is wondering if she has reflux or is having gallbladder issues. She reports taking Pepto-Bismol several times a day. ALLERGIES: SULFA. CURRENT LIST OF MEDICATIONS: Tramadol 50 mg q.i.d. p.r.n., potassium, Incruse Ellipta, Adderall, ginkgo biloba, magnesium, alprazolam, Effexor, losartan, amlodipine, vitamin D, fish oil, venlafaxine, aspirin, gabapentin, multivitamin, atorvastatin. PQRS: 1. She has osteoarthritic changes in her neck, wrist and back. Denies any rheumatoid arthritis. Height is 5 feet, weight is 135, BMI is 26. 2. Vital signs, blood pressure 121/64, pulse is 98, respirations 14, oxygen sat is 99%. 3. Pain score is 0/10. 4. Denies dizziness. Does not need help walking or standing. Has not fallen in the last 3 months. 5. The patient is not on any blood thinners, but does take medicine for hypertension. 6. Opioid therapy is greater than 6 weeks; therefore, we will have her sign an [address] [address] PAIN MANAGEMENT CONSULTATION Name: ANNA MARIECANDEJULIO LUND Room #: REG [facility] Dick.#: [id number] Admission: 08/28/20 Attend Phys: Augusta Meehan Discharge: Date of : 51 Report #: [id number] opioid signed contract is on the chart. Risk assessment is low. Functional assessment is 33/70. 7. Recreational drug use, she admits to using small amounts of marijuana. She does smoke cigarettes, one cigarette a day and does occasionally drink alcohol. According to the prescription monitoring system, the patient is filling appropriately in a timely fashion. She does take an occasional alprazolam, but very rarely and takes Adderall on a daily basis. PHYSICAL EXAMINATION: GENERAL: This is alert and orientated, anxious, well-developed, well-nourished 65-year-old female who appears her stated age, rating her pain score today at 0/10. HEENT: Normocephalic, atraumatic. Extraocular eye muscles are intact. She is wearing a mask. NECK: Without adenopathy or JVD. She has tenderness in her cervical spine that radiates down her C6-C7 dermatomal distribution on the right greater than the left. Her upper extremity strength is symmetrical at 5/5. MUSCULOSKELETAL: She is without significant scoliosis, kyphosis, or lordosis. She has a normal gait and good strength in her lower extremities. IMPRESSION: 1. Cervical radiculopathy. 2. Anxiety. 3. Osteoarthritis. 4. Depression. 5. Hypertension. 6. Complex medical management utilizing scheduled opioid medications. 7. Possible gastroesophageal reflux disease or gallbladder issues related to nausea and reflux. PLAN: 1. We discussed treatment options with the patient today. The patient finds her tramadol beneficial in controlling her pain, taking 2 tablets twice a day. We will continue this medication, having Dr. Michele sent electronically for #120 tablets, this is a one-month supply. The patient continues on monthly visits until January. At that time, we will see her on an every 3-month period. 2. We will have the patient sign an opioid agreement today and collect a random urine drug screen. The patient did volunteer that she occasionally uses marijuana, but does not have a medical marijuana card. We did discuss that if we continue opioid medications for her, she will not be able to continue her marijuana. The patient verbalizes understanding. I did explain that she would like to obtain a medical marijuana green card in the [facility] in which she lives. She may obtain that and then go off her tramadol. At this time, the patient states she will stop her marijuana use. 3. The patient will be seen in 1 month. At that time, we will go over her [facility] [address] [place] [address] PAIN MANAGEMENT CONSULTATION Name: CANDE THRASHER Room #: REG [facility] Cheng#: [id number] Admission: 08/28/20 Attend Phys: Augusta Meehan Discharge: Date of : 51 Report #: [id number] urine drug screen results. Time spent with the patient in consultation, reviewing recent studies and clinical notes and physician reports, physical examination and correlation of findings and medical documentation to determine possible treatment options 15 minutes. Time spent in preparing for appointment, reviewing prescription, monitoring reports, reviewing previous records and proposed treatment options and current medications 5 minutes. Time spent preparing and sending electronic prescriptions with collaborating physician, Dr. Campos, and documentation of visit and plan of treatment 5 minutes. Total time spent 25 minutes. DELONTE Joyner/JOELLEN <ELECTRONICALLY SIGNED> By: Augusta Meehan 08/29/20 1516 0912 [id number] Augusta Meehan /nt
== END ==
LOC: PAIN 07:00
PROVIDERS: ATTEND Clinical Nurse Specialist Adult Health
DX: M54.12 Radiculopathy, cervical region (principal); F41.9 Anxiety disorder, unspecified; M19.90 Unspecified osteoarthritis, unspecified site; F41.8 Other specified anxiety disorders; F11.20 Opioid dependence, uncomplicated; Z88.8 Allergy status to other drugs, medicaments and biological substances; Z79.899 Other long term (current) drug therapy

== ENCOUNTER → 2020-09-02 | Outpatient (CLI) | payer OTHER | LOC: BC 08:54 | PROVIDERS: ATTEND Family Medicine | DX: Z12.31 Encounter for screening mammogram for malignant neoplasm of breast (principal) ==

== ENCOUNTER → 2020-09-25 | Outpatient (CLI) | payer OTHER ==
[~2020-09-25] VITALS: Ht 160 cm; Wt 60.3 kg
[~2020-09-25] MED LIST changes: +ACYCLOVIR 800800 MG PO
[2020-09-25 09:06] VITALS: BP 118/67
--- NOTE | 2020-09-25 09:12 | NUR ---
Pain Clinic Assessment: 1. History of Osteoarthritis: NECK LEFT WRIST BACK History of Rheumatoid Arthritis: Not Applicable 2. Height: 5 ft. 3 in. 160.0 cm. Weight: 133.0 lb. oz. 60.328 kg. Patient's BMI: 23.6 3. Vital Signs: BP: 118/67 Pulse: 96 Resp: 14 Temp: 02 Sat: 97 ECG Mon: 4. Pain Intensity: 5 5. Fall Risk: Dizziness: N Needs help standing or walking: N Fallen in the last 3 months: N Fall risk comments: 6. Patient on Blood Thinner: None 7. History of Hypertension: Y 8. Opioid Therapy greater than 6 weeks: N Opiate Contract Signed: 9. Risk Assessment Tool Provided: LOW RISK 2 10. Functional Assessment Tool: 11. Recreational Drug Use: Never Drug Type: Tobacco Use: Current Every Day Smoker Tobacco Type: Cigarettes Amount or Packs/day: 2 CIGS How Many Years: Alcohol Use: Yes Frequency: Daily Quant: 3
--- NOTE | 2020-09-26 08:37 | HPC ---
[facility] [place] [address] PAIN MANAGEMENT CONSULTATION Name: CANDE THRASHER Room #: REG [facility]ITAL[facility]amiletSp.#: [id number] Admission: 09/25/20 Attend Phys: Augusta Meehan Discharge: Date of : 51 Report #: [id number] THIS REPORT FOR: cc: Fabian Marrero MD, Neal A. MD Hocker, Amanda CNS ~ DOC #: [id number] cc: Fabian Marrero MD, Dr. Andres Meehan, AGENCY RECRUITER DATE OF SERVICE: 09/25/2020 CHIEF COMPLAINT: Cervical radiculopathy. HISTORY OF PRESENT ILLNESS: This is a pleasant and anxious 65-year-old female who returns to the pain clinic today for a medication management visit. Today, she is reporting her pain a 5/10, mostly located in her cervical region. She is today complaining of mouth pain from fever blisters that she has been experiencing due to stress. She reports taking acyclovir currently for this mouth pain. Normally, her neck is a constant aching sensation, worse with turning her head and using her arms. Today, she reports it a 5/10. She continues to do curves as a form of exercise and feels that is beneficial in helping relieve some of her pain. She denies any constipation or daytime somnolence as a result of her medications. The patient does report that she has received the paperwork for medical marijuana card. She has not sent this to [place] per her report and has not started utilizing any marijuana products. She is still considering this as an option and wanted to be prepared. ALLERGIES: SULFA. CURRENT LIST OF MEDICATIONS: Acyclovir p.r.n., tramadol 50 mg up to 4 times a day, potassium, Incruse Ellipta, Adderall, ginkgo biloba, magnesium, alprazolam p.r.n., Effexor, valsartan, amlodipine, vitamin D3, fish oil, venlafaxine, aspirin, gabapentin, multivitamin and atorvastatin. PQRS: 1. She has osteoarthritic changes in her neck and spine. Denies any rheumatoid arthritis. Height is 5 feet 3 inches, weight is 133, BMI is 23. 2. Vital Signs: Blood pressure 118/67, pulse is 96, respirations 14, oxygen sat is 97%. 3. Pain score is 5/10. 4. Denies dizziness. Does not need help walking or standing, has not fallen in the last 3 months. 5. The patient is not on any blood thinners, but has a history of hypertension. 6. Opioid therapy is greater than 6 weeks. She does have an opioid agreement [address] [address] PAIN MANAGEMENT CONSULTATION Name: DAMEON THRASHERJULIO LUND Room #: REG CL Prosper#: [id number] Admission: 09/25/20 Attend Phys: Augusta Meehan Discharge: Date of : 51 Report #: [id number] on her chart. 7. Risk assessment is low. 8. Functional assessment is 33/70. RECREATIONAL DRUG USE: She denies. She is a smoker of 2-3 cigarettes a day and does drink 3-4 alcoholic drinks a night. According to the prescription monitoring system, the patient is filling appropriately. She is due to fill her medications today. We did collect her morphine mEq according to the CDC guidelines is 20 MME. We did collect a random drug screen on her at her last visit and is appropriate for her medications. We did discuss that it was positive for alcohol and her appointment was in the morning. She reports having 3-4 alcoholic drinks at nighttime. I encouraged her to decrease this as she is still positive the next morning. PHYSICAL EXAMINATION: GENERAL: This is an anxious and alert 65-year-old female who appears her stated age, rating her pain score today at 5/10. She is a good historian. HEENT: Normocephalic, atraumatic. Extraocular eye muscles are intact. She is wearing a mask. NECK: Without adenopathy or JVD. She has tenderness in her cervical spine that radiates into her shoulders, greater today on the right following the C6-C7 dermatomal distribution. Her upper arm strength is symmetrical at 5/5. MUSCULOSKELETAL: She is without significant scoliosis, kyphosis, lordosis. She has a normal gait. Moves independently from the seated to standing position. Lower extremity strength is symmetrical. IMPRESSION: 1. Cervical radiculopathy. 2. Anxiety. 3. Osteoarthritis. 4. Depression. 5. Hypertension. 6. Complicated medical management utilizing scheduled opioid medications. PLAN: 1. We discussed treatment options with the patient today. The patient finds her tramadol effective in controlling her pain, though she is considering utilizing medical marijuana. I discussed this with her at great length reminding her that if she does start taking medical marijuana on a daily basis, we will wean her off her tramadol. The patient is aware of this. She has not decided if she will try it or not. First, she may try hemp oil, which Dr. Marrero had recommended, to see if that helps decrease some of her pain. Again, I reminded her we will wean her down slowly off her tramadol if she determines to try utilizing products that contain marijuana. Today, we will continue her tramadol, though I encouraged her to try to decrease this as she is [facility] [address] [place] [address] PAIN MANAGEMENT CONSULTATION Name: CANDE THRASHER Room #: REG [facility]#: [id number] Admission: 09/25/20 Attend Phys: Augusta Meehan Discharge: Date of : 51 Report #: [id number] Michele will send tramadol 50 mg #120, a 1 month supply to her pharmacy. 2. We did discuss her alcohol consumption. The patient admits to taking 3-4 drinks at least every night since her drug screen was positive for alcohol in the morning. I encouraged her to decrease this amount that she drinks and not to take any alcohol with her opioid medications or medical marijuana if she determines that is the route she takes. 3. The patient will return in 1 month. Appointment made prior to discharge. Time spent in patient consultation reviewing recent studies, clinical notes and physician reports, physical examination and correlation of physical findings and medical documentation to determine possible treatment option 16 minutes. Time spent preparing for appointment reviewing prescription monitoring reports, previous records and proposed treatment options, reviewing current medications, 5 minutes. Time spent preparing and sending electronic prescriptions with collaborating physician, Dr. Andres Michele, documentation of visit and plan of treatment, 5 minutes. Total time spent 26 minutes. DELONTE Joyner/MICHAEL <ELECTRONICALLY SIGNED> By: Augusta Meehan 09/26/20 0837 [id number] 2035 Augusta Meehan /nt
== END ==
LOC: PAIN 06:53
PROVIDERS: ATTEND Clinical Nurse Specialist Adult Health
DX: M54.12 Radiculopathy, cervical region (principal); M19.90 Unspecified osteoarthritis, unspecified site; I10 Essential (primary) hypertension; F41.9 Anxiety disorder, unspecified; F32.9 Major depressive disorder, single episode, unspecified; Z79.891 Long term (current) use of opiate analgesic; Z79.899 Other long term (current) drug therapy; Z88.2 Allergy status to sulfonamides

== ENCOUNTER → 2020-10-23 | Outpatient (CLI) | payer OTHER ==
[~2020-10-23] VITALS: Ht 160 cm; Wt 60.1 kg
[~2020-10-23] MED LIST changes: +CANDICIDAL CAP1 EACH PO
[2020-10-23 09:01] VITALS: BP 123/63
--- NOTE | 2020-10-23 09:12 | NUR ---
Pain Clinic Assessment: 1. History of Osteoarthritis: NECK LEFT WRIST BACK History of Rheumatoid Arthritis: Not Applicable 2. Height: 5 ft. 3 in. 160.0 cm. Weight: 132.6 lb. oz. 60.147 kg. Patient's BMI: 23.5 3. Vital Signs: BP: 123/63 Pulse: 95 Resp: 14 Temp: 02 Sat: 97 ECG Mon: 4. Pain Intensity: 0 5. Fall Risk: Dizziness: N Needs help standing or walking: N Fallen in the last 3 months: N Fall risk comments: 6. Patient on Blood Thinner: None 7. History of Hypertension: Y 8. Opioid Therapy greater than 6 weeks: N Opiate Contract Signed: 9. Risk Assessment Tool Provided: LOW RISK 2 10. Functional Assessment Tool: 11. Recreational Drug Use: Never Drug Type: Tobacco Use: Current Every Day Smoker Tobacco Type: Cigarettes Amount or Packs/day: 1 CIGARETTE How Many Years: 47 Alcohol Use: Yes Frequency: Daily Quant: 3
== END ==
LOC: PAIN 07:25
PROVIDERS: ATTEND Anesthesiology Pain Medicine
DX: M54.12 Radiculopathy, cervical region (principal); M48.02 Spinal stenosis, cervical region; M25.78 Osteophyte, vertebrae; F41.9 Anxiety disorder, unspecified; J45.909 Unspecified asthma, uncomplicated; F32.9 Major depressive disorder, single episode, unspecified; K57.92 Diverticulitis of intestine, part unspecified, without perforation or abscess without bleeding; E78.5 Hyperlipidemia, unspecified; I10 Essential (primary) hypertension; G47.30 Sleep apnea, unspecified; F17.210 Nicotine dependence, cigarettes, uncomplicated; Z88.2 Allergy status to sulfonamides; Z79.899 Other long term (current) drug therapy

== ENCOUNTER → 2020-11-22 | Outpatient (CLI) | payer OTHER ==
[~2020-11-22] VITALS: Ht 157.5 cm; Wt 60.5 kg
[2020-11-22 08:57] VITALS: BP 127/56
--- NOTE | 2020-11-22 09:09 | NUR ---
Pain Clinic Assessment: 1. History of Osteoarthritis: NECK LEFT WRIST BACK History of Rheumatoid Arthritis: Not Applicable 2. Height: 5 ft. 2 in. 157.5 cm. Weight: 133.4 lb. oz. 60.510 kg. Patient's BMI: 24.4 3. Vital Signs: BP: 127/56 Pulse: 95 Resp: 14 Temp: 02 Sat: 99 ECG Mon: 4. Pain Intensity: 0 5. Fall Risk: Dizziness: N Needs help standing or walking: N Fallen in the last 3 months: N Fall risk comments: 6. Patient on Blood Thinner: None 7. History of Hypertension: Y 8. Opioid Therapy greater than 6 weeks: N Opiate Contract Signed: 9. Risk Assessment Tool Provided: LOW RISK 2 10. Functional Assessment Tool: 11. Recreational Drug Use: Never Drug Type: Tobacco Use: Current Every Day Smoker Tobacco Type: Cigarettes Amount or Packs/day: 1 cigg How Many Years: Alcohol Use: Yes Frequency: Daily Quant: 3-4
== END ==
LOC: PAIN 07:01
PROVIDERS: ATTEND Anesthesiology Pain Medicine
DX: M54.12 Radiculopathy, cervical region (principal); M19.90 Unspecified osteoarthritis, unspecified site; E78.5 Hyperlipidemia, unspecified; I10 Essential (primary) hypertension; G47.30 Sleep apnea, unspecified; F41.9 Anxiety disorder, unspecified; F32.9 Major depressive disorder, single episode, unspecified; Z79.891 Long term (current) use of opiate analgesic; Z79.899 Other long term (current) drug therapy

== ENCOUNTER → 2020-12-25 | Outpatient (CLI) | payer OTHER ==
[~2020-12-25] VITALS: Ht 157.5 cm; Wt 60.5 kg
[2020-12-25 10:09] VITALS: BP 128/69
--- NOTE | 2020-12-25 10:12 | NUR ---
Pain Clinic Assessment: 1. History of Osteoarthritis: NECK LEFT WRIST BACK History of Rheumatoid Arthritis: Not Applicable 2. Height: 5 ft. 2 in. 157.5 cm. Weight: 133.4 lb. oz. 60.510 kg. Patient's BMI: 24.4 3. Vital Signs: BP: 128/69 Pulse: 103 Resp: 16 Temp: 02 Sat: 97 ECG Mon: 4. Pain Intensity: 2 5. Fall Risk: Dizziness: N Needs help standing or walking: N Fallen in the last 3 months: N Fall risk comments: 6. Patient on Blood Thinner: None 7. History of Hypertension: Y 8. Opioid Therapy greater than 6 weeks: N Opiate Contract Signed: 9. Risk Assessment Tool Provided: LOW RISK 2 10. Functional Assessment Tool: 11. Recreational Drug Use: Never Drug Type: Tobacco Use: Current Every Day Smoker Tobacco Type: Cigarettes Amount or Packs/day: 2 CIGGS How Many Years: Alcohol Use: Yes Frequency: Daily Quant: 3
== END ==
LOC: PAIN 08:55
PROVIDERS: ATTEND Anesthesiology Pain Medicine
DX: M54.12 Radiculopathy, cervical region (principal); M19.90 Unspecified osteoarthritis, unspecified site; E78.5 Hyperlipidemia, unspecified; I10 Essential (primary) hypertension; G47.30 Sleep apnea, unspecified; F41.9 Anxiety disorder, unspecified; F32.9 Major depressive disorder, single episode, unspecified; Z79.899 Other long term (current) drug therapy; Z79.891 Long term (current) use of opiate analgesic

== ENCOUNTER → 2021-02-10 | Outpatient (CLI) | payer OTHER ==
[~2021-02-10] MED LIST changes: +ADDERALL 10 MG10 MG PO; +GABAPENTIN600 M1 PO; -MULTIVITAMINS1 EAC7; +NEURONTIN 300M300 M2 PO; +NORVASC10 MG PO; +SUPER THERAVIT1 EACH PO; +ULTRAM50 MG PO; +VALSARTAN320 MG PO; +VENLAFAXINE HC225 MG PO
== END ==
LOC: LAB 09:15
PROVIDERS: ATTEND Student in an Organized Health Care Education/Training Program
DX: Z01.812 Encounter for preprocedural laboratory examination (principal); Z20.822 Contact with and (suspected) exposure to COVID-19

== ENCOUNTER → 2021-02-12 | Outpatient (CLI) | payer OTHER ==
[~2021-02-12] VITALS: Ht 152.4 cm; Wt 59.0 kg
--- NOTE | 2021-02-14 10:47 | P ---
[facility] [place] [address] [address] [place] [address] PROCEDURE REPORT Name: CANDE THRASHER Room #: REG [facility] Prosper#: [id number] Admission: 02/12/21 Attend Phys: Kendell López Discharge: Date of : 51 Report #: [id number] THIS REPORT FOR: cc: Fabian Marrero MD, Neal A. MD McElhinney, Christian C. MD ~ cc: Fabian Marrero MD DATE OF SERVICE: 02/12/2021 PROCEDURE PERFORMED: Colonoscopy. HISTORY OF PRESENT ILLNESS: The patient is a 66-year-old female who has a history of tubular adenomatous polyp removed in 2016. No family history of colon cancer. She had diarrhea approximately 1-2 months ago. This was completely resolved. She reports no change in her bowels at this time. Plan is for colonoscopy. DESCRIPTION OF PROCEDURE: The risks and benefits of the procedure were explained to the patient, those risks including but not limited to bleeding, perforation and the risk of sedation. She understood these risks and gave informed consent. Sedation was given using propofol per Anesthesia. Next, a digital rectal exam was initially performed, which was normal. Next, using a standard Olympus colonoscope, the scope was placed in the patient's anus and advanced under direct vision to the cecum. The overall prep was good. The cecum and ileocecal valve were normal in appearance. The ascending, transverse and descending colon were normal. Multiple diverticula were noted in the sigmoid colon. No evidence of inflammation, otherwise normal. The rectal mucosa was normal. On retroflexion, no abnormalities were noted. The scope was then withdrawn and the procedure terminated. The patient tolerated the procedure well. IMPRESSION: 1. Sigmoid diverticulosis. 2. Otherwise, normal colonoscopy. RECOMMENDATIONS: Repeat colonoscopy in 10 years. Thank you for allowing me to participate in her care. <ELECTRONICALLY SIGNED> By: Kendell Goldman MD 02/14/21 1047 0845 1113 Kendell Goldman MD /nt
== END | disposition home or self-care (01) ==
LOC: GI 08:04
PROVIDERS: ATTEND Specialist
DX: Z12.11 Encounter for screening for malignant neoplasm of colon (principal); Z86.010 Personal history of colon polyps; K57.30 Diverticulosis of large intestine without perforation or abscess without bleeding; I10 Essential (primary) hypertension; E78.00 Pure hypercholesterolemia, unspecified; M19.90 Unspecified osteoarthritis, unspecified site; J43.9 Emphysema, unspecified; F41.9 Anxiety disorder, unspecified; F32.9 Major depressive disorder, single episode, unspecified; F17.210 Nicotine dependence, cigarettes, uncomplicated; Z98.890 Other specified postprocedural states; Z79.899 Other long term (current) drug therapy; Z90.710 Acquired absence of both cervix and uterus; Z90.49 Acquired absence of other specified parts of digestive tract; Z88.2 Allergy status to sulfonamides
CPT/HCPCS: 62110; 62900

== ENCOUNTER → 2021-02-14 | Outpatient (CLI) | payer OTHER ==
[~2021-02-14] VITALS: Ht 152.4 cm; Wt 60.0 kg
[2021-02-14 08:14] VITALS: BP 125/62
== END ==
LOC: PAIN 06:55
PROVIDERS: ATTEND Clinical Nurse Specialist Adult Health
DX: M54.12 Radiculopathy, cervical region (principal); M19.90 Unspecified osteoarthritis, unspecified site; F41.8 Other specified anxiety disorders; Z88.8 Allergy status to other drugs, medicaments and biological substances; Z79.899 Other long term (current) drug therapy

== ENCOUNTER → 2021-04-23 | Outpatient (CLI) | payer OTHER ==
[~2021-04-23] VITALS: Ht 152.4 cm; Wt 59.1 kg
[2021-04-23 08:10] VITALS: BP 139/70
--- NOTE | 2021-04-23 08:10 | NUR ---
Pain Clinic Assessment: 1. History of Osteoarthritis: NECK LEFT WRIST BACK History of Rheumatoid Arthritis: Not Applicable 2. Height: 5 ft. 0 in. 152.4 cm. Weight: 130.4 lb. oz. 59.149 kg. Patient's BMI: 25.5 3. Vital Signs: BP: 139/70 Pulse: 99 Resp: 18 Temp: 02 Sat: 98 ECG Mon: 4. Pain Intensity: 0 5. Fall Risk: Dizziness: Y Needs help standing or walking: N Fallen in the last 3 months: N Fall risk comments: 6. Patient on Blood Thinner: None 7. History of Hypertension: Y 8. Opioid Therapy greater than 6 weeks: N Opiate Contract Signed: 9. Risk Assessment Tool Provided: LOW RISK 2 10. Functional Assessment Tool: 11. Recreational Drug Use: Never Drug Type: Tobacco Use: Current Every Day Smoker Tobacco Type: Amount or Packs/day: How Many Years: Alcohol Use: Yes Frequency: Daily Quant: 4 VODKA/SODAS BEFORE DINNER
--- NOTE | 2021-04-23 11:53 | HPC ---
[facility] [address] [place] [address] PAIN MANAGEMENT CONSULTATION Name: CANDE THRASHER Room #: REG [facility]#: [id number] Admission: 04/23/21 Attend Phys: Augusta Meehan Discharge: Date of : 51 Report #: [id number] THIS REPORT FOR: cc: Fabian Marrero MD,Augusta Kumar MD ~ cc: Fabian Marrero MD, Enid Michele MD DATE OF SERVICE: 04/23/2021 CHIEF COMPLAINT: Cervical radiculopathy. HISTORY OF PRESENT ILLNESS: As you know, this is a pleasant 66-year-old female who continues to have ongoing pain in her cervical region that does radiate into her right shoulder at times. Today, she is reporting a pain score of 0. She states that her pain is usually worse later in the day as well as over utilizing her head and arms or looking up too long. She believes that exercise and her medications are beneficial. She has returned to our clinic today just finishing her Jazzercise exercise class. She tends to take her tramadol twice in the morning and twice at night, but sometimes lately she has been utilizing less than her allotted amount as she is doing quite well on her regimen. She denies any daytime somnolence or constipation issues as a result of her medications. ALLERGIES: SULFA. CURRENT LIST OF MEDICATIONS: Gabapentin 600 mg b.i.d., tramadol 50 mg q.i.d., Adderall, amlodipine, losartan, potassium, Ellipta, ginkgo biloba, magnesium, alprazolam, vitamin D3, omega 3, venlafaxine, aspirin, multivitamin, atorvastatin. PQRS: 1. She has known arthritic issues in her neck, wrist and back. Denies any rheumatoid arthritis. Height is 5 feet, weight is 130, BMI is 25. 2. Vital signs 139/70, pulse is 99, respirations 18, oxygen sat is 98%. 3. Pain score is 0 today. 4. Has slight dizziness with certain positions, does not need help walking or standing, has not fallen in the last 3 months. 5. The patient is not on any blood thinners, but does take medicine for hypertension. Opioid therapy is greater than 6 weeks. We have an opioid signed contract on the chart. 6. Risk assessment is low. Functional assessment is 33/70. 7. Recreational drug use, she denies. She is a current smoker and does drink alcohol. According to the prescription monitoring system, the patient is filling appropriately, though her last fill according to the records was in January. She states it was in March, but [place] [address] PAIN MANAGEMENT CONSULTATION Name: CANDE THRASHER KEVON Room #: REG CLZane Cheng#: [id number] Admission: 04/23/21 Attend Phys: Augusta Meehan Discharge: Date of : 51 Report #: [id number] date. She does take a benzodiazepine as alprazolam and is closely monitored by her physicians. Her morphine mEq is 20 MME or lower. PHYSICAL EXAMINATION: GENERAL: This is alert and oriented, well-developed, well-nourished 66-year-old female who appears her stated age, rating her pain score today is 0/10. She is deemed a good historian. HEENT: Normocephalic, atraumatic. Extraocular muscles are intact. She is wearing a mask for COVID precautions. NECK: She is without adenopathy or JVD. MUSCULOSKELETAL: She has tenderness in the cervical spine that radiates into her right shoulder. No further radicular symptoms noted today. Pain follows the C5-C6 dermatomal distribution. Pain is increased with active and passive range of motion of her cervical spine. The patient is without significant scoliosis, kyphosis, or lordosis. EXTREMITIES: She does have tenderness in her left forearm, which is a large ecchymosis area noted today. IMPRESSION: 1. Cervical radiculopathy. 2. Osteoarthritis. 3. Anxiety and depression. 4. Complex medical management utilizing scheduled opioid medications. We reviewed the fact that opiate medications are being used to provide analgesia adequate to support activities of daily living, not attempting to achieve a specific pain score on the 0-10 Visual Analog Scale. The current opiate medications are providing sufficient analgesia to allow the patient to participate in activities of daily living. The patient is not exhibiting any aberrant behavior suggestive of drug diversion. The patient is not having any adverse reactions to medications. The patient is not suffering from daytime somnolence or mental acuity changes. The patient is managing opiate-induced constipation with appropriate momu-rrn-nmxvolo agents and dietary considerations. The patient was counseled on concern for caution with operating a motor vehicle while using opiate medications. A physical exam was performed and the patient's functional status was evaluated. All patients with back pain were advised against the bed rest greater than 4 days and were advised to return to normal activities. Pain score assessment was noted and the treatment plan was reviewed with the patient. All current medications, both prescribed and OTC were reviewed and reconciled on the electronic medical record. Tobacco screening was accomplished and smoking cessation was advised when indicated. BMI was noted and diet/exercise modification was recommended for all patients following outside normal parameters. [facility] [address] [place] [address] PAIN MANAGEMENT CONSULTATION Name: CANDE THRASHER Room #: REG [facility] M.Sp.#: [id number] Admission: 04/23/21 Attend Phys: Augusta CARLTON Zoran Discharge: Date of : 51 Report #: [id number] I reviewed with the patient today their responsibilities to safeguard prescription medications, reviewed their responsibility to utilize medications only as prescribed by the physician. They are to seek and receive pain medications only from 1 physician group ( [facility]). They are to use 1 pharmacy and keep the clinic informed if they change pharmacies. Their responsibilities include making followup visits in a timely fashion and to avoid abrupt discontinuation of medication usage. Their responsibilities further include bringing their medications (bottles from the pharmacy with residual pills) to the visit for possible confirmation of pill counts and the patient understands it is their responsibility to submit to random drug screens to ensure both that the medications prescribed are present, and that no other controlled substances are present. All prescriptions provided today were generated electronically. PLAN: We discussed treatment options with the patient today. The patient finds her tramadol very beneficial in controlling her pain. We did discuss when her last refill date was according to the prescription monitoring was 02/14. The patient states it was in March. She will call with the date on her bottle from home. Either way, the patient has been here for greater than two months ago taking slightly less than her prescribed amount, which is appropriate. I informed her, we strive her lowest most effective dose. The patient will continue on her tramadol 50 mg. We will provide #120 for today and again in 4 weeks for a refill and the patient will follow up in 2 months. We did discuss the patient's Adderall use and alprazolam use and the patient takes these at different times than her opioid medications. Time spent on patient in consultation, reviewing recent imaging, reviewing recent studies and clinical notes and physician reports, physical examination and correlation of findings, medical documentation to determine possible treatment options 12 minutes. Time spent in preparation for appointment reviewing prescription monitoring system reports, reviewing previous records and proposed treatment options and reviewing current medications 4 minutes. Time spent preparing and sending electronic prescriptions with collaborating physician, Dr. Michele, documentation of visit and plan of care, 5 minutes. Total time spent 22 minutes. <ELECTRONICALLY SIGNED> By: Augusta Meehan 04/23/21 1153 0742 0923 Augusta Meehan /nt
== END ==
LOC: PAIN 07:31
PROVIDERS: ATTEND Clinical Nurse Specialist Adult Health
DX: M54.12 Radiculopathy, cervical region (principal); M19.90 Unspecified osteoarthritis, unspecified site; F41.8 Other specified anxiety disorders; Z88.8 Allergy status to other drugs, medicaments and biological substances; Z79.899 Other long term (current) drug therapy